=== PATIENT | female | born 1995 | race Caucasian/White ===

== ENCOUNTER → 2016-12-14 | Outpatient (CLI) | payer OTHER ==
--- NOTE | 2016-12-14 09:10 | MM ---
Reason for exam: clinical finding. Baseline mammogram. History: Patient is nulliparous. Family history of breast cancer in maternal grandmother at age 55. Taking hormonal contraceptives for 6 months beginning at age 21. Indicated problem(s): lump or thickening in the left breast. Physical Findings: Nurse did not find any significant physical abnormalities on exam. MG Diagnostic Mammo LT w CAD MLO view(s) were taken of the left breast. There are scattered fibroglandular densities. There is no discrete abnormality. These results were verbally communicated with the patient and result sheet given to the patient on 12/14/16. ASSESSMENT: Benign, BI-RAD 2 RECOMMENDATION: Clinical management of both breasts. Manage patient on a clinical basis.
--- NOTE | 2016-12-14 09:12 | USB ---
Reason for exam: clinical finding. History: Patient is nulliparous. Family history of breast cancer in maternal grandmother at age 55. Taking hormonal contraceptives for 6 months beginning at age 21. Indicated problem(s): lump or thickening in the left breast. US Breast Limited LT Left breast ultrasound demonstrates no cystic or solid lesion seen. These results were verbally communicated with the patient and result sheet given to the patient on 12/14/16. ASSESSMENT: Negative, BI-RAD 1 RECOMMENDATION: Follow-up diagnostic mammogram of the left breast.
== END | disposition home or self-care (01) ==
LOC: RADMAMWWP 07:00
PROVIDERS: ATTEND Family Medicine
DX: N63 Unspecified lump in breast (principal)
CPT/HCPCS: 76642; G0206

== ENCOUNTER → 2017-04-24 | Outpatient (CLI) | payer OTHER ==
--- NOTE | 2017-04-24 15:49 | XR ---
EXAMINATION TYPE: 2 views left wrist. 2 views left hand DATE OF EXAM: 04/24/2017 COMPARISON: NONE HISTORY: 21 year-old female with posterior hand pain after hitting fence. FINDINGS: Wrist: Radiocarpal and distal radioulnar joints as well as the midcarpal compartment appear intact. No acute fracture, subluxation, or dislocation. Hand: No acute fracture, subluxation, or dislocation. Joint spaces appear maintained. IMPRESSION: Left wrist and hand without acute osseous abnormality seen on 2 views.
== END | disposition home or self-care (01) ==
LOC: RADXRMAIN 12:59
PROVIDERS: ATTEND Family Medicine
DX: M79.642 Pain in left hand (principal)

== ENCOUNTER → 2017-10-22 | Outpatient (CLI) | payer OTHER ==
[2017-10-22 13:25] VITALS: BP 138/82; PULSE 74; RESP 18; TEMP 97.9; BMI 41.6
--- NOTE | 2017-10-22 14:25 | P.HPOB ---
History of Present Illness H&P Date: 10/22/17 Chief Complaint: The patient was like a 2nd opinion regarding abnormal Pap smear. This is a 22-year-old G0 with an LMP of 10/20/2017. The patient states she had an abnormal Pap smear showing ascus with positive HPV testing and this was done by Dr. Ramos last summer. She was told to repeat the Pap smear after one year. No colposcopic examination was performed. She states she has a long history of long irregular periods which did improve with oral contraception. She has been on many different types of oral contraception but is currently on Casi 08/03. She states or periods are regular every month but she does have discomfort starting one day before her menstrual flow and during her menstrual flow. She describes the discomfort as pelvic pressure. She would like a 2nd opinion regarding her abnormal Pap smear. Review of Systems Her weight has been stable. She denies respiratory, cardiac, or G.I. problems. Past Medical History Past Medical History: Thyroid Disorder (Hypothyroid) History of Any Multi-Drug Resistant Organisms: None Reported Past Surgical History: No Surgical Hx Reported Past Anesthesia/Blood Transfusion Reactions: No Reported Reaction Past Psychological History: Anxiety, Depression Smoking Status: Never smoker Past Alcohol Use History: Occasional Past Drug Use History: None Reported Additional History: She is single and has been with her boyfriend since about 2016. She and her boyfriend live with her parents. She works at [employer]. - Past Family History Mother Family Medical History: Hypertension Father Family Medical History: No Reported History Medications and Allergies Home Medications Medication Instructions Recorded Confirmed Type Levothyroxine Sodium [Synthroid] 88 mcg PO DAILY 10/22/17 10/22/17 History Venlafaxine HCl [Effexor XR] 150 mg PO DAILY 10/22/17 10/22/17 History Allergies Allergy/AdvReac Type Severity Reaction Status Date / Time No Known Allergies Allergy Verified 12/14/16 07:35 Exam - Vital Signs Vital signs: Vital Signs Temp Pulse Resp BP 10/22/17 13:18 97.9 F 74 18 138/82 Intake and Output 10/21/17 10/22/17 10/22/17 22:59 06:59 14:59 Other: Weight 120.656 kg Height 5'7", BMI 41.7. This is a well-developed heavyset white female who is alert and oriented times 3 in no acute distress. HEENT: Within normal limits. CHEST AND LUNGS: Clear to auscultation. HEART: Regular rate and rhythm. BREASTS: declined by the patient BACK: Negative for CVA tenderness. ABDOMEN: obese, Soft, nontender, without palpable masses. PELVIC EXAM: Normal external genitalia. Cervix and vagina appear normal. There is no unusual discharge. There is no evidence of prolapse. The uterus is midposition, nongravid size and nontender. There are no palpable adnexal masses or tenderness. Bimanual examination is somewhat limited secondary to her size. RECTAL EXAM: deferred EXTREMITIES: Nontender. IMPRESSION: 1. 22-year-old female with history of abnormal Pap smear showing ascus and positive HPV testing per the patient. 2. Mild dysmenorrhea on oral contraception. PLAN: 1. The patient is here for a 2nd opinion. Repeating the Pap smear one year after the ascus Pap smear is indicated. No further testing is recommended at this time. This recommendation is different than a woman who is older than 25 years of age. 2. Anaprox ALFONSO 1 PO b.i.d. PRN for menstrual pain. An E-prescription will be sent to [facility] in [place]. 3. She will follow-up with Dr. Ramos or return here for a repeat Pap smear one year after her previous Pap smear.
== END | disposition home or self-care (01) ==
LOC: WWCWWP 12:57
PROVIDERS: ATTEND Obstetrics & Gynecology
DX: Z53.9 Procedure and treatment not carried out, unspecified reason (principal)

== ENCOUNTER → 2019-04-07 | Outpatient (CLI) | payer OTHER ==
[2019-04-07 11:03] VITALS: BP 136/81; PULSE 91; RESP 16; TEMP 98.5; BMI 41.1
--- NOTE | 2019-04-07 12:01 | P.HPOB ---
History of Present Illness H&P Date: 04/07/19 Chief Complaint: The patient is here for routine gynecologic exam and control . This is a 23 year old G0 with an LMP of 03/29/2019. The patient has been using Casi 08/03 for control. She has been having regular breakthrough bleeding about 2 weeks into each pack where she has period like bleeding for 3 or 4 days. This is similar to the menstrual period she has at the end of each pack, except the breakthrough bleeding seems to be more painful. She would like to try something different for control. She has tried about 3 or 4 different control pills all with similar side effects. She is otherwise without complaints. Her previous Pap smear was done in 2017 which showed ascus and there was positive high-risk HPV testing at that time. This Pap smear was done through Dr. Ramos. Review of Systems The patient has lost 4 pounds over the last year. She denies respiratory, cardiac, or G.I. problems. Past Medical History Past Medical History: Thyroid Disorder Additional Past Medical History / Comment(s): Hypothyroidism. Past SOLUTION ARCHITECT history: positive high-risk HPV and a Pap smear. History of Any Multi-Drug Resistant Organisms: None Reported Past Surgical History: No Surgical Hx Reported Past Anesthesia/Blood Transfusion Reactions: No Reported Reaction Past Psychological History: Anxiety, Depression Smoking Status: Never smoker Past Alcohol Use History: Occasional (2 or 3 per month.) Past Drug Use History: None Reported Additional History: She is currently unemployed. She is single and has had 8 sexual partners in her lifetime. Her current boyfriend has been with her since February 2019. She is taking online classes through [employer]. - Past Family History Mother Family Medical History: Hypertension Father Family Medical History: No Reported History Medications and Allergies Home Medications Medication Instructions Recorded Confirmed Type Levothyroxine Sodium [Synthroid] 100 mcg PO DAILY 10/22/17 04/07/19 History Naproxen Sodium [Anaprox DS] 550 mg PO Q12HR PRN #25 tab 10/22/17 04/07/19 Rx Venlafaxine HCl [Effexor XR] 150 mg PO DAILY 10/22/17 04/07/19 History Norethindrone-E.estradiol-Iron 1 each PO HS 04/07/19 04/07/19 History [Blisovi Fe 1-20 Tablet] Allergies Allergy/AdvReac Type Severity Reaction Status Date / Time No Known Allergies Allergy Verified 04/07/19 10:54 Exam Vital Signs Temp Pulse Resp BP Pulse Ox 04/07/19 10:48 98.5 F 91 16 136/81 98 Intake and Output 04/06/19 04/07/19 04/07/19 22:59 06:59 14:59 Other: Weight 119.295 kg Height 5'7", weight 263 pounds, BMI 41.2. This is a well-developed well-nourished heavyset white female who is alert and oriented times 3 in no acute distress. HEENT: Within normal limits. NECK: Supple without mass or thyromegaly. CHEST AND LUNGS: Clear to auscultation. HEART: Regular rate and rhythm. BREASTS: Are without mass or discharge. AXILLARY EXAM: Negative for adenopathy. BACK: Negative for CVA tenderness. ABDOMEN: Soft, nontender, without palpable masses. PELVIC EXAM: Normal external genitalia. Cervix and vagina appear normal. There is no unusual discharge. There is no cervical motion tenderness. There is no evidence of prolapse. The uterus is midposition, nongravid size and nontender. There are no palpable adnexal masses or tenderness. RECTAL EXAM: deferred. EXTREMITIES: Nontender. IMPRESSION: 1. 23 year old female with normal gynecologic exam. 2. Regular breakthrough bleeding on low-dose oral contraception. 3. Previous Pap smear showing ascus with positive high-risk HPV PLAN: 1. Pap smear was performed (cytology only due to age). If Pap smear is ascus or greater, consider referral for colposcopic examination. 2. Self breast awareness was discussed with the patient. 3. GC and chlamydia testing has been obtained from the cervix. 4. STD prevention was discussed. I have stressed the importance of limiting sexual partners and I have also recommended that she used condoms to decrease the risk of STDs. 5. We have had a long discussion regarding control options. We have discussed barrier methods, hormonal methods, IUD and sterilization. After long discussion we have decided to have a trial of the Ortho Evra patch. She will start this after the completion of her current pack. The electronic prescription will be sent to [facility] in [place]. She will call if she has any problems. We discussed how to use the patch. We also discussed possible risks including slight increased risk for blood clots as well as possible side effects. 6. She was advised to return in one year for her annual well woman exam.
--- NOTE | 2019-04-21 17:36 | P.PN ---
Progress Note - Text Progress Note Date: 04/21/19 The patient called stating that she did not do well with the Xulane control patches. The first patch fell off after 1 day. She used a new patch and try to clean the skin with an alcohol wipe and then dried the skin. That patch fell off as well. She went back on control pills that she already had. She was advised to use a backup method such as condoms during this present pack. I also suggested a trial of the NuvaRing, but she is declining this. She states she would rather use control pills. If she continues to have breakthrough bleeding on these pills, we will consider a 30-35 g pill. We are continuing to try to get an appointment for a colposcopy due to the 2 ye ar history of abnormal Pap smears. We were called by Dr. Watts's office and were told that he recommends repeating the Pap smear in one year. We will contact his office to make sure that they note that she has had repeat Pap smears that have been abnormal for more than 24 months. I am still recommending colposcopic examination.
== END | disposition home or self-care (01) ==
LOC: WWCWWP 10:43
PROVIDERS: ATTEND Obstetrics & Gynecology
DX: Z53.9 Procedure and treatment not carried out, unspecified reason (principal)

== ENCOUNTER → 2020-06-13 | Outpatient (CLI) | payer OTHER | END | disposition home or self-care (01) | LOC: LABWHC1 15:49 | PROVIDERS: ATTEND Family Medicine | DX: Z20.828 Contact with and (suspected) exposure to other viral communicable diseases (principal) | CPT/HCPCS: U0003; C9803 ==

== ENCOUNTER → 2021-01-20 | Outpatient (CLI) | payer OTHER ==
[2021-01-21 03:16] LABS: Basophils # (A) 0.02 X 10*3/uL (0.00-0.10); Basophils % (A) 0.3 %; Eosinophils # (A) 0.07 X 10*3/uL (0.04-0.35); HCT 43.1 % (37.2-46.3); HGB 13.2 g/dL (12.0-15.0); Lymphocytes # (A) 1.68 X 10*3/uL (0.90-5.00); Lymphocytes % (A) 24.9 %; MCH 28.8 pg (27.0-32.0); MCHC 30.6 g/dL (32.0-37.0); MCV 93.9 fL (80.0-97.0); Mean Platelet Volume 11.6 fL (9.5-12.2); Monocytes # (A) 0.46 X 10*3/uL (0.20-1.00); Monocytes % (A) 6.8 %; Neutrophils % (A) 66.9 %; Platelet Count 290 X 10*3/uL (140-440); RBC 4.59 X 10*6/uL (4.10-5.20); RDW 13.2 % (11.5-14.5); WBC 6.74 X 10*3/uL (4.50-10.00)
[2021-01-21 04:14] LABS: African American GFR (CKD) 118.8 (60.0-200.0); Albumin 4.3 g/dL (3.80-4.90); Albumin/Globulin Ratio 1.65 (1.60-3.17); Anion Gap 7.9 mmol/L (4.00-12.00); BUN/Creat Ratio 18.75 Ratio (12.00-20.00); Calcium 9.3 mg/dL (8.7-10.3); Carbon Dioxide 24.1 mmol/L (21.6-31.8); Globulin 2.6 g/dL (1.6-3.3); Non-African American GFR(CKD) 102.5 (60.0-200.0); Potassium 4.3 mmol/L (3.5-5.5); Total Bilirubin 0.4 mg/dL (0.3-1.2); Total Protein 6.9 g/dL (6.2-8.2)
== END | disposition home or self-care (01) ==
LOC: LABWHC1 13:37
PROVIDERS: ATTEND Nurse Practitioner
DX: Z79.899 Other long term (current) drug therapy (principal)
CPT/HCPCS: 36415; 80053; 85025

== ENCOUNTER → 2021-05-24 | Outpatient (CLI) | payer OTHER | END | disposition home or self-care (01) | LOC: LABWHC1 12:34 | PROVIDERS: ATTEND Family Medicine | DX: Z20.822 Contact with and (suspected) exposure to COVID-19 (principal); J06.9 Acute upper respiratory infection, unspecified | CPT/HCPCS: 87502; U0003; C9803 ==